=== PATIENT | female | born 1950 | race Caucasian/White ===

== ENCOUNTER 2017-10-01 17:05 | Emergency (ER) | payer MEDICARE, OTHER ==
[~2017-10-01] VITALS: Ht 149.9 cm; Wt 104.8 kg
[~2017-10-01 17:05] MED LIST: LEVO125T PO; OMEP40CA37 PO
[2017-10-01] MEDS ORDERED: ondansetron 4mg/5ml UD cup PO ONE (18:45)
[2017-10-01] MEDS ORDERED: HYDROcodone/acetaminophen 10/325mg tab PO ONE (18:45)
[2017-10-01 19:18] VITALS: BP 162/66
== END 2017-10-01 19:19 | disposition home or self-care (01) ==
LOC: ER 17:06
DX: M25.561 Pain in right knee (principal); G89.29 Other chronic pain; J02.9 Acute pharyngitis, unspecified; R49.0 Dysphonia; Z87.891 Personal history of nicotine dependence; Z88.5 Allergy status to narcotic agent
CPT/HCPCS: 73560; 99284

== ENCOUNTER 2017-11-03 16:17 | Inpatient (IN) | payer MEDICARE, OTHER ==
[~2017-11-03] VITALS: Ht 149.9 cm; Wt 104.2 kg
[2017-11-03 16:54] LABS: BASOPHILS % (AUTO) 0.8 % (0-1); EOSINOPHILS # (AUTO) 0.4 X10'3 (0-0.9); EOSINOPHILS % (AUTO) 7.4 % (0-6); HEMATOCRIT 37.6 % (35.0-45.0); HEMOGLOBIN 13.1 g/dl (12.0-16.0); LYMPHOCYTES # (AUTO) 0.9 X10'3 (1.1-4.8); LYMPHOCYTES % (AUTO) 14.6 % (21-51); MEAN CORPUSCULAR HEMOGLOBIN 27.7 PG (27.0-31.0); MEAN CORPUSCULAR HGB CONC 34.7 % (33.0-36.5); MEAN CORPUSCULAR VOLUME 79.8 FL (78-98); MEAN PLATELET VOLUME 8.5 FL (7.4-10.4); MONOCYTES # (AUTO) 0.5 X10'3 (0-0.9); NEUTROPHILS # (AUTO) 4.1 X10'3 (1.8-7.7); NEUTROPHILS % (AUTO) 69.2 % (42-75); PLATELET COUNT 232 X10'3 (140-440); RED BLOOD COUNT 4.71 X10'6 (4.20-5.60); RED CELL DISTRIBUTION WIDTH 15.2 % (11.5-14.5); WHITE BLOOD COUNT 5.9 X10'3 (4.5-11.0)
[2017-11-03 17:04] LABS: INR 0.9 INR; PARTIAL THROMBOPLASTIN TIME 32 SECONDS (22-32); PROTHROMBIN TIME 9.7 SECONDS (9.0-12.0)
[2017-11-03 17:12] LABS: ALANINE AMINOTRANSFERASE 12 U/L (12-78); ALBUMIN 3.3 G/DL (3.4-5.0); ALBUMIN/GLOBULIN RATIO 0.8 (1.1-1.5); ALKALINE PHOSPHATASE 111 IU/L (46-116); ANION GAP 8 (8-16); ASPARTATE AMINO TRANSFERASE 15 U/L (10-37); BILIRUBIN,TOTAL 0.4 MG/DL (0.1-1.0); BLOOD UREA NITROGEN 16 MG/DL (7-18); BUN/CREATININE RATIO 13.3 (6.6-38.0); CHLORIDE 106 MMOL/L (99-107); GLUCOSE 124 MG/DL (70-104); POTASSIUM 4.1 MMOL/L (3.5-5.1); SODIUM 141 MMOL/L (135-145); TOTAL PROTEIN 7.7 G/DL (6.4-8.2); eGFR 45 ML/MIN
[2017-11-03] MEDS ORDERED: heparin 10,000 units/1 ML INJ IV ONE ×2 (17:30→18:00)
[2017-11-03] MEDS ORDERED: aspirin 81mg tab.chew PO ONE (17:30)
[2017-11-03] MEDS ORDERED: heparin 10,000 units/1 ML INJ IV PRN ×2 (17:30→18:00)
[2017-11-03] MEDS ORDERED: metoprolol tartrate 1mg/ml inj IV ONE (17:40)
[2017-11-03] MEDS ORDERED: magnesium Cl slow-release 64mg tablet PO PRN (17:50)
[2017-11-03] MEDS ORDERED: acetaminophen 325mg tablet PO PRN (17:50)
[2017-11-03] MEDS ORDERED: potassium Cl 40MEQ/NS 500ml 500 ML IV PRN ×2 (17:50)
[2017-11-03] MEDS ORDERED: magnesium 4gm in 100ml NS 100 ML IV PRN (17:50)
[2017-11-03] MEDS ORDERED: mag hydrox/Alum hydrox/simeth 30ml oral suspension PO PRN (17:50)
[2017-11-03] MEDS ORDERED: potassium Cl 20 mEq SR tablet PO PRN ×2 (17:50)
[2017-11-03] MEDS: nitroGLYCERIN 0.4mg SUBLingual tab SL PRN ×2 (17:50→17:59)
[2017-11-03] MEDS ORDERED: magnesium 2GM in 50ml NS 50 ML IV PRN (17:50)
[2017-11-03] MEDS ORDERED: ondansetron/PF 4mg/2ml inj IV PRN (17:50)
[2017-11-03] MEDS ORDERED: magnesium hydroxide 30ml (MOM) UD suspension PO PRN (17:50)
[2017-11-03] MEDS: aspirin 325mg tablet PO SCH (17:55)
[2017-11-03] MEDS ORDERED: metoprolol tartrate 1mg/ml inj IV PRN (17:55)
[2017-11-03] MEDS ORDERED: nitroGLYCERIN 0.4mg SUBLingual tab SL PRN (17:55)
[2017-11-03] MEDS ORDERED: LORazepam 2 mg/ml vial IV ONE (18:05)
[2017-11-03] MEDS ORDERED: LORazepam 0.5 MG tablet PO PRN (18:30)
[2017-11-03 19:30] VITALS: BP 149/78
[2017-11-03] MEDS ORDERED: heparin, porcine 5000 units/ml vial SQ SCH (20:00)
[2017-11-03] MEDS: lisinopril 5mg tablet PO SCH (20:48)
[2017-11-03] MEDS: carVEDilol 3.125mg tablet PO SCH (20:49)
[2017-11-03 23:00] VITALS: BP 137/60
[2017-11-04] VITALS (18 sets, daily range): BP systolic 113–214; BP diastolic 65–126
[2017-11-04 05:03] LABS: BASOPHILS % (AUTO) 0.8 % (0-1); EOSINOPHILS # (AUTO) 0.4 X10'3 (0-0.9); EOSINOPHILS % (AUTO) 7.9 % (0-6); HEMATOCRIT 34.8 % (35.0-45.0); HEMOGLOBIN 11.8 g/dl (12.0-16.0); LYMPHOCYTES % (AUTO) 18.8 % (21-51); MEAN CORPUSCULAR HEMOGLOBIN 27.3 PG (27.0-31.0); MEAN CORPUSCULAR HGB CONC 33.9 % (33.0-36.5); MEAN CORPUSCULAR VOLUME 80.7 FL (78-98); MEAN PLATELET VOLUME 8.8 FL (7.4-10.4); MONOCYTES # (AUTO) 0.6 X10'3 (0-0.9); MONOCYTES % (AUTO) 11.4 % (2-12); NEUTROPHILS # (AUTO) 3.2 X10'3 (1.8-7.7); NEUTROPHILS % (AUTO) 61.1 % (42-75); PLATELET COUNT 200 X10'3 (140-440); RED BLOOD COUNT 4.31 X10'6 (4.20-5.60); WHITE BLOOD COUNT 5.3 X10'3 (4.5-11.0)
[2017-11-04 05:34] LABS: ALANINE AMINOTRANSFERASE 17 U/L (12-78); ALBUMIN 2.9 G/DL (3.4-5.0); ALBUMIN/GLOBULIN RATIO 0.8 (1.1-1.5); ALKALINE PHOSPHATASE 95 IU/L (46-116); ANION GAP 6 (8-16); ASPARTATE AMINO TRANSFERASE 15 U/L (10-37); BILIRUBIN,TOTAL 0.4 MG/DL (0.1-1.0); BLOOD UREA NITROGEN 24 MG/DL (7-18); BUN/CREATININE RATIO 17.1 (6.6-38.0); CALCIUM 8.7 MG/DL (8.5-10.1); CHLORIDE 108 MMOL/L (99-107); GLUCOSE 109 MG/DL (70-104); MAGNESIUM 2.1 MG/DL (1.5-2.4); SODIUM 142 MMOL/L (135-145); TOTAL CARBON DIOXIDE 27.7 MMOL/L (24-32); TOTAL PROTEIN 6.7 G/DL (6.4-8.2); eGFR 37 ML/MIN
[2017-11-04] MEDS: carVEDilol 3.125mg tablet PO SCH ×2 (07:46→19:14)
[2017-11-04] MEDS: lisinopril 5mg tablet PO SCH (07:46)
[2017-11-04] MEDS: aspirin 325mg tablet PO SCH (07:47)
[2017-11-04] MEDS: K and/or MAG REPLACEMENT MC SCH (08:00)
[2017-11-04] MEDS ORDERED: aminophylline inj. 10 ML IV ONE (09:19)
[2017-11-04] MEDS ORDERED: regadenoson 0.4mg/5ml syringe IV ONE (09:19)
[2017-11-04] MEDS ORDERED: metoprolol tartrate 1mg/ml inj IV ONE (09:22)
[2017-11-04 09:38] LABS: CHOL/HDL RATIO 3.4 (0.00-4.99); CHOLESTEROL 161 MG/DL (0-200); HDL CHOLESTEROL 47 MG/DL (35-60); LDL CHOLESTEROL 99 MG/DL (50-100); TRIGLYCERIDES 94 MG/DL (20-135)
[2017-11-04] MEDS: regadenoson 0.4mg/5ml syringe IV PRN ×2 (09:49→11:07)
[2017-11-04] MEDS: aminophylline 250mg/10ml inj. IV PRN ×2 (09:53→11:07)
[2017-11-04] MEDS ORDERED: carVEDilol 3.125mg tablet PO ONE (11:45)
[2017-11-04] MEDS ORDERED: lisinopril 5mg tablet PO ONE (11:55)
[2017-11-04] MEDS ORDERED: lisinopril 5mg tablet PO SCH (12:00)
[2017-11-04] MEDS ORDERED: ALLO100T PO (15:37)
[2017-11-04] MEDS ORDERED: TRAM50TA2 PO (15:37)
[2017-11-04] MEDS ORDERED: ERGO500041 PO (15:37)
[2017-11-04] MEDS ORDERED: HYDROchlorothiazide 12.5mg capsule PO SCH (16:00)
[2017-11-04] MEDS ORDERED: lisinopril 20mg tablet PO SCH (21:41)
[2017-11-05 03:00] VITALS: BP 138/63
[2017-11-05 05:11] LABS: BASOPHILS % (AUTO) 0.6 % (0-1); EOSINOPHILS # (AUTO) 0.5 X10'3 (0-0.9); EOSINOPHILS % (AUTO) 7.8 % (0-6); HEMATOCRIT 35.6 % (35.0-45.0); HEMOGLOBIN 12.3 g/dl (12.0-16.0); LYMPHOCYTES # (AUTO) 1.1 X10'3 (1.1-4.8); LYMPHOCYTES % (AUTO) 18.4 % (21-51); MEAN CORPUSCULAR HEMOGLOBIN 27.9 PG (27.0-31.0); MEAN CORPUSCULAR HGB CONC 34.6 % (33.0-36.5); MEAN CORPUSCULAR VOLUME 80.7 FL (78-98); MEAN PLATELET VOLUME 8.8 FL (7.4-10.4); MONOCYTES # (AUTO) 0.6 X10'3 (0-0.9); MONOCYTES % (AUTO) 9.3 % (2-12); NEUTROPHILS % (AUTO) 63.9 % (42-75); PLATELET COUNT 212 X10'3 (140-440); RED BLOOD COUNT 4.41 X10'6 (4.20-5.60); WHITE BLOOD COUNT 6.2 X10'3 (4.5-11.0)
[2017-11-05 05:37] LABS: ALANINE AMINOTRANSFERASE 13 U/L (12-78); ALBUMIN 2.9 G/DL (3.4-5.0); ALBUMIN/GLOBULIN RATIO 0.7 (1.1-1.5); ALKALINE PHOSPHATASE 92 IU/L (46-116); ANION GAP 7 (8-16); ASPARTATE AMINO TRANSFERASE 17 U/L (10-37); BILIRUBIN,TOTAL 0.4 MG/DL (0.1-1.0); BLOOD UREA NITROGEN 23 MG/DL (7-18); CALCIUM 8.9 MG/DL (8.5-10.1); CHLORIDE 107 MMOL/L (99-107); CREATININE 1.21 MG/DL (0.40-0.90); GLUCOSE 101 MG/DL (70-104); SODIUM 143 MMOL/L (135-145); TOTAL PROTEIN 6.9 G/DL (6.4-8.2); eGFR 44 ML/MIN
[2017-11-05 05:48] LABS: POTASSIUM 4.3 MMOL/L (3.5-5.1)
[2017-11-05 06:00] VITALS: BP 132/61
[2017-11-05] MEDS ORDERED: levoTHYROXINE 125mcg tablet PO SCH (07:00)
[2017-11-05] MEDS: K and/or MAG REPLACEMENT MC SCH (08:00)
[2017-11-05] MEDS ORDERED: allopurinol 100mg tablet PO SCH (09:20)
[2017-11-05] MEDS ORDERED: pantoprazole 40mg Tablet.DR PO SCH (09:20)
[2017-11-05] MEDS: aspirin 325mg tablet PO SCH (10:09)
[2017-11-05] MEDS: carVEDilol 3.125mg tablet PO SCH (10:11)
[2017-11-05 11:00] VITALS: BP 153/63
[2017-11-05] MEDS ORDERED: LISI-600 PO (11:33)
[2017-11-05] MEDS ORDERED: ASPI-1 PO (11:33)
[2017-11-05] MEDS ORDERED: COR3.125T PO (11:33)
== END 2017-11-05 13:25 | disposition home or self-care (01) | DRG 313 ==
LOC: ER 16:18 → ED HOLD 17:52 → PCU 3S 19:30
PROVIDERS: ADMIT Internal Medicine; ATTEND Family Medicine
PROC: 4A02XM4 Measurement of Cardiac Total Activity, External Approach (ICD-10-PCS; principal; 2017-11-04)
PROC: 3E073KZ Introduction of Other Diagnostic Substance into Coronary Artery, Percutaneous Approach (ICD-10-PCS; 2017-11-04)
DX: R07.2 Precordial pain (principal); N17.9 Acute kidney failure, unspecified; Z68.42 Body mass index [BMI] 45.0-49.9, adult; I16.1 Hypertensive emergency; E66.01 Morbid (severe) obesity due to excess calories; E03.9 Hypothyroidism, unspecified; G47.33 Obstructive sleep apnea (adult) (pediatric); I16.0 Hypertensive urgency; I12.9 Hypertensive chronic kidney disease with stage 1 through stage 4 chronic kidney disease, or unspecified chronic kidney disease; N18.9 Chronic kidney disease, unspecified; E78.5 Hyperlipidemia, unspecified; M13.879 Other specified arthritis, unspecified ankle and foot; F41.9 Anxiety disorder, unspecified; M10.9 Gout, unspecified; Z90.710 Acquired absence of both cervix and uterus; Z88.5 Allergy status to narcotic agent; Z79.899 Other long term (current) drug therapy; Z87.11 Personal history of peptic ulcer disease; Z85.42 Personal history of malignant neoplasm of other parts of uterus; Z82.49 Family history of ischemic heart disease and other diseases of the circulatory system; Z71.3 Dietary counseling and surveillance
CPT/HCPCS: 36415; 71045; 78452; 80053; 80061; 83735; 83880; 84443; 84484; 85025; 85610; 85730; 87070; 87502; 87503; 93005; 93017; 93306; 93975; 99285; A9500; J0280; J1644; J2060; J3490; J7030

== ENCOUNTER 2019-02-23 14:24 | Outpatient (CLI) | payer MEDICARE, OTHER ==
[~2019-02-23] VITALS: Ht 149.9 cm; Wt 99.8 kg
[~2019-02-23 14:24] MED LIST changes: +ALLO100T PO; +ASPI-1 PO; +COR3.125T PO; +LISI-600 PO; +TRAM50TA2 PO
[2019-02-23] MEDS ORDERED: albuterol 2.5 MG/3 ML nebule NEB PRN (16:15)
== END 2019-02-23 23:59 | disposition home or self-care (01) ==
LOC: 64 CT 14:24
PROVIDERS: ATTEND Family Medicine
DX: J45.909 Unspecified asthma, uncomplicated (principal); J34.2 Deviated nasal septum; M85.2 Hyperostosis of skull; R94.2 Abnormal results of pulmonary function studies; I10 Essential (primary) hypertension; Z87.891 Personal history of nicotine dependence; Z79.899 Other long term (current) drug therapy
CPT/HCPCS: 70486; 94060; 94727; 94729; 94760